=== PATIENT | male | born 1955 | race Caucasian/White ===

== ENCOUNTER → 2020-10-02 15:41 | Outpatient (CLI) | payer MEDICARE, SELFPAY ==
--- NOTE | 2020-10-02 15:54 | XR_ITS ---
PROCEDURE: XR HIP LT 2-3V W/PELVIS CLINICAL INDICATION: severe back, hip pain COMPARISON: No exams were available for comparison FINDINGS: No fracture or dislocation is evident. No significant degenerative change. No lytic or blastic change. Unremarkable soft tissues. Surgical clips are present in the inguinal regions in there is bilateral iliac calcification. IMPRESSION: No acute findings. Dictated by: Efe Ayala MD 10/02/2020 17:12 Efe Ayala MD in [place] 10/02/2020 17:12
--- NOTE | 2020-10-02 15:54 | XR_ITS ---
PROCEDURE: XR LUMBAR SPINE MIN 4V CLINICAL INDICATION: lower back pain COMPARISON: No exams were available for comparison FINDINGS: Normal alignment. No acute fracture or dislocation. Mild degenerative disc disease T12-L1 No lytic or blastic change. Surgical clips are present in the right upper quadrant mid abdominal region and there is a right renal artery stent present Other findings:Generalized vascular calcification IMPRESSION: No acute findings. Dictated by: Efe Ayala MD 10/02/2020 17:14 Efe Ayala MD in [place] 10/02/2020 17:14
--- NOTE | 2020-10-02 15:54 | XR_ITS ---
PROCEDURE: XR THORACIC SPINE 3V CLINICAL INDICATION: hip pain Mid to low back pain COMPARISON: CR XR LUMBAR SPINE MIN 4V from 10/02/2020 FINDINGS: Normal alignment. No acute fracture or dislocation. There is mild degenerative disc disease in the lower thoracic spine and thoracolumbar junction there is slight loss of height anteriorly T10-T11 which may be chronic. There has been a prior CABG. Vascular stents are present in the carotid area IMPRESSION: No acute findings. Dictated by: Efe Ayala MD 10/02/2020 17:16 Efe Ayala MD in [place] 10/02/2020 17:16
== END ==
PROVIDERS: PCP Internal Medicine; Visit Provider Specialist
DX: M25.552 Pain in left hip (principal); M54.5 Low back pain; M54.6 Pain in thoracic spine; M54.9 Dorsalgia, unspecified
CPT/HCPCS: 72072; 72110; 73502